=== PATIENT | female | born 1990 | race Caucasian/White ===

== ENCOUNTER 2022-01-10 08:01 | Outpatient (CLI) | payer OTHER, SELFPAY ==
--- NOTE | 2022-01-10 08:15 | CRLHL7_ITS ---
For Patients: As a result of the Century Cures Act, medical imaging exams and procedure reports are released immediately into your electronic medical record. You may view this report before your referring provider. If you have questions, please contact your health care provider. INDICATION: HX OF DVT AND PE COMPARISON: None available TECHNIQUE: A duplex venous ultrasound exam was performed of both lower extremities using delgado scale imaging, color Doppler and spectral Doppler analysis. Pre- and post compression images were obtained per site specific protocol. The size of the superficial veins were recorded, along with reflux times if applicable. FINDINGS: In the right lower extremity deep venous system, there is normal compressibility, color Doppler venous blood flow and augmentation within the common femoral vein, superficial femoral vein, popliteal vein, and posterior tibial veins. The greater and lesser saphenous veins of the right lower extremity are also patent and compressible with intact color Doppler venous blood flow. The greater saphenous vein measures 0.2 cm at the saphenofemoral junction where it is competent. The greater saphenous vein is competent throughout the thigh and calf. The lesser saphenous vein is competent throughout. The saphenopopliteal junction is identified. In the left lower extremity deep venous system, there is normal compressibility, color Doppler venous blood flow and augmentation within the common femoral vein, superficial femoral vein, popliteal vein, and posterior tibial veins. The greater and lesser saphenous veins of the left lower extremity are also patent and compressible with intact color Doppler venous blood flow. The greater saphenous vein measures 0.3 cm at the saphenofemoral junction where it is competent. The greater saphenous vein is competent throughout the thigh and calf. The lesser saphenous vein is competent throughout. The saphenopopliteal junction is identified. IMPRESSION: 1. No deep or superficial venous thrombosis. 2. No venous insufficiency in bilateral lower extremities. Dictated by Gurvinder Hussein MD @ 01/10/2022 12:07:51 PM (Electronically Signed)
== END 2022-01-10 08:02 | disposition home or self-care (01) ==
LOC: US 08:02
PROVIDERS: PCP Nurse Practitioner Family; Visit Provider Nurse Practitioner Family
DX: I26.99 Other pulmonary embolism without acute cor pulmonale (principal); Z86.718 Personal history of other venous thrombosis and embolism
CPT/HCPCS: 93970

== ENCOUNTER 2022-04-10 15:18 | Outpatient (RCR) | payer OTHER, SELFPAY ==
[2022-02-27 15:19] LABS: D Dimer Quantitative* 0.39 ug/ml (0.00-0.50)
[2022-03-10 08:28] LABS: Cardiolipin Antibody IgA <10 APL (<=11); Cardiolipin Antibody IgG <10 GPL (<=14); Cardiolipin Antibody IgM <10 MPL (<=12)
[2022-03-10 19:06] LABS: B2Glycoprotein 1, IgG Antibody <10 SGU (<=20); B2Glycoprotein 1, IgM Antibody <10 SMU (<=20)
[2022-03-13 18:59] LABS: PT PCR Specimen Whole Blood; Prothrombin(F2)G20210A Variant Negative
[2022-03-14 18:07] LABS: Protein C Functional 121 % (83-168); Protein S Functional 87 % (57-131)
[2022-03-14 19:59] LABS: Antithrombin, Enzymatic 124 % (76-128)
[2022-03-15 15:05] LABS: FACV Specimen Whole Blood; Factor V Leiden (F5) Mutation Heterozygous
[2022-03-17 17:32] LABS: Prothrombin Time 12.4 sec (12.0-15.5); dRVVT Screen 33 sec (33-44)
[2022-03-17 20:14] LABS: Antithrombin, Enzymatic 120 % (76-128)
== END 2022-09-03 23:59 | disposition home or self-care (01) ==
LOC: CCIC 15:18
PROVIDERS: PCP Nurse Practitioner Family; Referring Provider Nurse Practitioner Family; Visit Provider Internal Medicine Hematology & Oncology
DX: I82.409 Acute embolism and thrombosis of unspecified deep veins of unspecified lower extremity (principal); Z86.718 Personal history of other venous thrombosis and embolism
CPT/HCPCS: 36415; 81240; 81241; 85300; 85303; 85306; 85379; 85610; 85613; 85730; 86146; 86147; 99202; 99204; 99205; 99212; 99213; 99214

== ENCOUNTER 2022-10-08 13:02 | Outpatient (CLI) | payer OTHER, SELFPAY ==
--- NOTE | 2022-10-08 13:00 | CRLHL7_ITS ---
For Patients: As a result of the Cures Act, medical imaging exams and procedure reports are released immediately into your electronic medical record. You may view this report before your referring provider. If you have questions, please contact your health care provider. INDICATION: First trimester scan, establish dates. COMPARISON: None. TECHNIQUE: Real-time delgado-scale imaging of the pelvis was performed. FINDINGS: Sonographic imaging demonstrates a single living intrauterine gestation. The embryo demonstrates a regular cardiac rate measuring 178 beats per minute. The embryo`s crown-rump length measurement of 2.2 cm corresponds to a gestational age of 8 weeks 6 days with a sonographic due date of 05/14/2023. There is a normal-appearing yolk sac. There are no gross abnormalities noted within the embryo at this early state of development. The gestational sac has a normal appearance. There is a 0.7 x 1.7 x 1.2 cm lower uterine segment perigestational hemorrhage. The amount of fluid within the sac appears appropriate for gestational age. The cervix is closed. The myometrium appears normal. The ovaries are of normal size. Corpus luteal cyst right ovary. There are no suspicious fluid collections noted in the cul-de-sac. IMPRESSION: Single living intrauterine with sonographic gestational age 8 weeks 6 days and sonographic due date of 05/14/2023. Lower uterine segment subchorionic hemorrhage measuring 0.7 x 1.7 x 1.2 cm. Dictated by Gurvinder Hussein MD @ 10/08/2022 2:41:18 PM (Electronically Signed)
== END 2022-10-08 13:03 | disposition home or self-care (01) ==
LOC: US 13:02
PROVIDERS: PCP Nurse Practitioner Family; Visit Provider Physician Assistant
DX: Z34.91 Encounter for supervision of normal pregnancy, unspecified, first trimester (principal); O20.9 Hemorrhage in early pregnancy, unspecified; Z3A.08 8 weeks gestation of pregnancy
CPT/HCPCS: 76817

== ENCOUNTER 2022-10-08 13:27 | Outpatient (CLI) | payer OTHER, SELFPAY ==
[2022-10-08 19:57] LABS: Chlamydia DNA Amplified* NOT DETECTED (No Detected); GC DNA Amplified* NOT DETECTED (No Detected)
== END 2022-10-08 13:28 | disposition home or self-care (01) ==
PROVIDERS: PCP Nurse Practitioner Family; Visit Provider Physician Assistant
DX: Z34.91 Encounter for supervision of normal pregnancy, unspecified, first trimester (principal); Z3A.09 9 weeks gestation of pregnancy
CPT/HCPCS: 86592; 86703; 86762; 86787; 86803; 86850; 86900; 86901; 87086; 87340; 87491; 87591

== ENCOUNTER 2023-02-20 08:05 | Outpatient (CLI) | payer OTHER, SELFPAY ==
--- NOTE | 2023-02-20 08:15 | CRLHL7_ITS ---
For Patients: As a result of the Century Cures Act, medical imaging exams and procedure reports are released immediately into your electronic medical record. You may view this report before your referring provider. If you have questions, please contact your health care provider. INDICATION: Third trimester scan, evaluate growth. COMPARISON: 10/08/2022 TECHNIQUE: Real time delgado scale imaging of the fetus was performed. FINDINGS: Sonographic imaging demonstrates a single living intrauterine gestation. Fetus demonstrates a regular cardiac rate of 139 beats per minute. Fetus has a vertex position. The placenta lies anteriorly. Amniotic fluid volume appears normal and there is a single deepest vertical pocket: 6.1 cm. The estimated weight is 1335gm which lies at the 63rd %. BPD 72nd percentile. HC 58th percentile. AC 79th percentile. FL 22nd percentile. The HC/AC ratio measures 1.07 range (0.99-1.20). IMPRESSION: Sonographic gestational age 29 weeks 2 days and sonographic due date of 05/06/2023. Sonographic age is 6 days ahead of the clinical age. Estimated weight 63rd percentile. Abdominal circumference 79th percentile. Dictated by Gurvinder Hussein MD @ 02/20/2023 9:41:37 AM (Electronically Signed)
== END 2023-02-20 08:06 | disposition home or self-care (01) ==
LOC: US 08:06
PROVIDERS: PCP Nurse Practitioner Family; Visit Provider Obstetrics & Gynecology
DX: Z34.93 Encounter for supervision of normal pregnancy, unspecified, third trimester (principal); Z3A.29 29 weeks gestation of pregnancy
CPT/HCPCS: 76816

== ENCOUNTER 2023-02-20 08:20 | Outpatient (CLI) | payer OTHER, SELFPAY ==
--- NOTE | 2023-02-20 08:54 | PM.ANPROEV ---
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 Smoking Status: Never smoker Little interest or pleasure in doing things: not at all Feeling down, depressed, or hopeless: not at all Meds Home Medications and Allergies Home Medications Medication Instructions Recorded Confirmed Type cetirizine 10 mg capsule (Zyrtec) 10 mg PO QDAY PRN 03/07/22 02/20/23 History magnesium oxide 400 mg (241.3 mg 400 mg PO QDAY 03/07/22 02/20/23 History magnesium) tablet prenat.vits,keli,caf-putc-erbqe 1 tab PO QDAY 10/08/22 02/20/23 History Allergies Allergy/AdvReac Type Severity Reaction Status Date / Time No Known Allergies Allergy Verified 02/20/23 08:56 Anesthesia Risk Status Procedure Time Seen by Provider: 14:00 Date Seen: 02/19/23 Planned operative procedure(s): C/S versus TOLAC History Anesthesia history: spinal History of anesthesia reactions: No Family history of reaction to anesthesia: No Risk Assessed to be at risk for difficult intubation: No Assessment and Plan Assessment and plan (1) Factor V Leiden: Problem comment: Heterozygous Status: Chronic (2) intermediate designer (current) use of anticoagulants: Problem comment: Indication: DVT/PE. INR target range 2-3 for 6 months. Status: Chronic (3) : Status: Acute Plan Had appointment scheduled, but met the day prior out of mutual convenience. Prev C/S under spinal without issue. post op DVT/PE with diagnosis of Factor V Leiden. On lovenox during 40 mg BID. We had a discussion about options. sceduled C/S obviously is easiset to plan around need minimal of 12 hours before neuraxial anesthesia and 2021 Society of Regional Anesthesiology guidelines update puts greater than 40 mg/day of Lovenox in the high dose range and requires 24 hours prior to neuraxial anesthesia (48 hours if low CrCl). If using IV heparin would need 4-6 hours (per guidelines) and a normalized ptt prior to neuraxial intervention. She is aware of the recommendations and had previously discussed this with Naif Ibanez CRNA. One of her goals is to avoid a general anesthetic if need for C/S arises. 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 (if she chooses this pathway)
== END 2023-02-20 08:21 | disposition home or self-care (01) ==
LOC: NFLDREF 08:21
PROVIDERS: PCP Nurse Practitioner Family; Visit Provider Obstetrics & Gynecology
DX: Z34.91 Encounter for supervision of normal pregnancy, unspecified, first trimester (principal); D68.51 Activated protein C resistance; Z79.01 Long term (current) use of anticoagulants; Z3A.28 28 weeks gestation of pregnancy
CPT/HCPCS: 86592

== ENCOUNTER 2023-02-26 08:34 | Outpatient (CLI) | payer OTHER, SELFPAY | END 2023-02-26 08:35 | disposition home or self-care (01) | LOC: NFLDREF 02-27 11:11 | PROVIDERS: PCP Nurse Practitioner Family; Referring Provider Nurse Practitioner Family; Visit Provider Obstetrics & Gynecology | DX: R73.09 Other abnormal glucose (principal) | CPT/HCPCS: 82951; 82952 ==

== ENCOUNTER 2023-03-21 08:17 | Outpatient (CLI) | payer OTHER, SELFPAY ==
--- NOTE | 2023-03-21 08:15 | CRLHL7_ITS ---
For Patients: As a result of the Century Cures Act, medical imaging exams and procedure reports are released immediately into your electronic medical record. You may view this report before your referring provider. If you have questions, please contact your health care provider. INDICATION: Third trimester scan, evaluate growth. COMPARISON: 02/20/2023 TECHNIQUE: Real time delgado scale imaging of the fetus was performed. FINDINGS: Sonographic imaging demonstrates a single living intrauterine gestation. Fetus demonstrates a regular cardiac rate of 124 beats per minute. Fetus has a vertex position. The placenta lies anteriorly. Amniotic fluid volume appears normal and there is a single deepest vertical pocket: 6.3 cm. The estimated weight is 2023gm which lies at the 43rd %. On the prior OB ultrasound exam dated 02/20/2023 the estimated weight was at the 63rd%. BPD 49th percentile. HC 58th percentile. AC 61st percentile. FL 16th percentile. The HC/AC ratio measures 1.06 range (0.96-1.11). IMPRESSION: Sonographic gestational age 32 weeks 6 days and sonographic due date 05/10/2023. Good correlation with dates. Normal interval growth. Estimated weight 43rd percentile. Abdominal circumference 61st percentile. Dictated by Gurvinder Hussein MD @ 03/21/2023 9:29:46 AM (Electronically Signed)
== END 2023-03-21 08:18 | disposition home or self-care (01) ==
LOC: US 08:18
PROVIDERS: PCP Nurse Practitioner Family; Visit Provider Obstetrics & Gynecology
DX: Z34.93 Encounter for supervision of normal pregnancy, unspecified, third trimester (principal); Z3A.32 32 weeks gestation of pregnancy; Z87.59 Personal history of other complications of pregnancy, childbirth and the puerperium
CPT/HCPCS: 76816

== ENCOUNTER 2023-04-19 10:04 | Outpatient (CLI) | payer OTHER, SELFPAY ==
--- NOTE | 2023-04-19 10:15 | CRLHL7_ITS ---
For Patients: As a result of the Century Cures Act, medical imaging exams and procedure reports are released immediately into your electronic medical record. You may view this report before your referring provider. If you have questions, please contact your health care provider. INDICATION: Third trimester scan, evaluate growth. COMPARISON: 03/21/2023 TECHNIQUE: Real time delgado scale imaging of the fetus was performed. FINDINGS: Sonographic imaging demonstrates a single living intrauterine gestation. Fetus demonstrates a regular cardiac rate of 157 beats per minute. Fetus has a vertex position. The placenta lies anteriorly. Amniotic fluid volume appears normal and there is a single deepest vertical pocket: 6.8 cm. The estimated weight is 2904gm which lies at the 43rd %. On the prior OB ultrasound exam dated 03/21/2023 the estimated weight was at the 43rd%. BPD 20th percentile. HC 41st percentile. AC 66th percentile. FL 50th percentile. The HC/AC ratio measures 1.00 range (0.92-1.07). IMPRESSION: Sonographic gestational age 36 weeks 2 days and sonographic due date 05/15/2023. Good correlation with dates. Normal interval growth. Estimated weight 43rd percentile. Abdominal circumference 66th percentile. Dictated by Gurvinder Hussein MD @ 04/19/2023 1:21:15 PM (Electronically Signed)
== END 2023-04-19 10:05 | disposition home or self-care (01) ==
LOC: US 10:05
PROVIDERS: PCP Nurse Practitioner Family; Visit Provider Obstetrics & Gynecology
DX: Z34.93 Encounter for supervision of normal pregnancy, unspecified, third trimester (principal); Z3A.36 36 weeks gestation of pregnancy
CPT/HCPCS: 76816; 87081; 87653

== ENCOUNTER 2023-05-10 05:30 | Inpatient (IN) | payer OTHER, SELFPAY ==
[2023-05-10] VITALS (31 sets, daily range): BP systolic 96–126; BP diastolic 51–78; PULSE 60–82; RESP 15–18; TEMP 36.3–36.9; O2SAT 95–99; BMI 30.1
[2023-05-10 06:10] LABS: Basophils Absolute Auto 0.04 K/uL (0.00-0.30); Basophils Percent Auto 0.5 % (0.0-3.0); Eosinophils Absolute Auto 0.13 K/uL (0.00-0.50); Eosinophils Percent Auto 1.6 % (0.0-7.0); Hematocrit 37.3 % (33.0-51.0); Immature Granulocytes Abs Auto 0.04 K/uL (0.00-0.30); Immature Granulocytes Pct Auto 0.5 %; Lymphocytes Absolute Auto 2.05 K/uL (0.90-2.90); Mean Corpuscular HGB Conc 35 gm/dL (32-36); Mean Corpuscular Hemoglobin 33 pg (26-34); Mean Corpuscular Volume 95 fL (80-100); Monocytes Percent Auto 7.4 % (0.0-11.0); Neutrophils Absolute Auto 5.34 K/uL (1.7-7.0); Platelet Count* 188 K/uL (140-440); RDW Coefficient of Variation % 13.1 % (11.5-15.5); Red Blood Count 3.93 m/uL (4.00-5.20); White Blood Count* 8.21 K/uL (4.50-11.00)
[2023-05-10 06:27] LABS: Slide Review Reflex No
[2023-05-10] MEDS: LACTATED RINGERS 1000 ML 1,000 ML 225 ML IV ×2 (06:28→07:49)
[2023-05-10 06:47] LABS: INR 0.87 (0.91-1.10); Prothrombin Time 12.4 Seconds
[2023-05-10 06:48] LABS: Partial Thromboplastin Time* 29 Seconds (23-33)
[2023-05-10 06:50] LABS: Fibrinogen* 554 mg/dL (200-450)
[2023-05-10] MEDS: CEFAZOLIN 2 GM INJ IVP (07:35)
--- NOTE | 2023-05-10 08:02 | W.ANESCHARGE ---
Anesthesia Charges Start Date/Time Anesthesia Start Date: 05/10/23 Anesthesia Start Time: 07:24 Stop Date/Time Anesthesia Stop Date: 05/10/23 Anesthesia Stop Time: 08:46
--- NOTE | 2023-05-10 08:41 | P.NB_ITS ---
Nerve Block Nerve Block Time Seen by Provider: 08:35 Date Seen: 05/10/23 Type of block requested by surgeon for post-operative analgesia: TAP Side: bilateral Time out performed: Yes Verification of patient name: Yes Verification of date of : Yes Name of person performing procedure: Akila Cl Continuous monitoring Was continuous monitoring of O2 sat, B/P, monitoring specialist, recorded every 15 minutes?: Yes Procedure Checklist: sterile prep, needles and gloves Ultrasound guided. Images saved: Yes Medications given in 5ml increments after negative aspiration: Marcaine %: 0.25 mL: 30 Needle gauge: 21 and Exparel mL: 10 Needle gauge: 21 Patient tolerated procedure well: Yes Block Charges Block Charge (with Pro Fee): TAP Bilateral Use of Ultrasound Machine for Block: Yes- US Guidance/pain block
--- NOTE | 2023-05-10 09:00 | PM.OBHPCS1 ---
OB - H&P: HPI History of Present Illness Chief complaint: maternity Narrative: Paulette Ivey is a 32 year old female at 39w5d here for scheduled repeat delivery. Patient's full history dictated by myself on 04/24/2023. Please see note for full details. She has been doing q.day Lovenox 40 mg status b.i.d. for the last week. Active movement. Denies LOF, vaginal bleeding or abnormal vaginal discharge. Some Lex Rg contractions. Specific Issues/Plans 1. Factor V Leiden heterozygous. History of DVT with bilateral PE at 3 weeks . Was treated with 6 months of anticoagulation. Started prophylactic Lovenox dose with positive UPT. Lovenox 40mg SC MFM consult 10/23/22: recommend increasing to intermediate dosing: Lovenox 40mg BID through 6 weeks -wait 12 hours after dose LMWH before placing regional anesthesia (see additional timing recommendations in consult note) - US: unable to obtain NT due to position, nasal bone visualized - Anesthesia consult placed: Stop Lovenox 24 prior to . If heparin, 6 hours after last dose with normalized PTT. (cephalic, EF to be 43%, AC 66%, all growth parameters within normal ranges. to confirm with Dr. Ibanez) -Consider timed delivery at 39 weeks to aid in the discontinuation of Lovenox 2. History of IUGR - Level 2 US with [facility]: 12/12/22 -normal anatomy. Anterior placenta, no previa. EFW 44% -Growth US q 4-6 weeks starting at 28 weeks: 28 weeks: ?EFW 1335 g (63%), BPD 72%, HC 58%, AC 79%, FL 22%, SDP 6.1 cm, vertex 3. Status post . IUGR and bradycardia Considering Growth US @ 36 weeks: EFW 43%, AC 66%, all growth parameters within normal ranges Repeat section to be scheduled with Dr. Farias on 05/10/2023 (Dr. Vásquez on jury duty): Scheduling form filled out. 4. Carrier for SMA, is negative 5. 3 hr GTT entirely normal. 6. GBS positive. 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 What is your current living situation?: I presently have a place to live Problems where you live: no known problems In the past 12 months, utilities in danger of being shut off: no In past 12 months, lack of transportation kept you from medical appts, meetings, work, or getting things needed for daily living: no In the past 12 mos, have been you worried that your food would run out before you had money to buy more?: never true In the past 12 mos, the food you bought just didn't last and you didn't have money to buy more?: never true Smoking Status: Never smoker How often does anyone, including family, friends and others, physically hurt you: never How often does anyone, including family, friends and others, insult or talk down to you: never How often does anyone, including family, friends and others, threaten you with harm: never How often does anyone, including family, friends and others, scream or curse at you: never Little interest or pleasure in doing things: not at all Feeling down, depressed, or hopeless: not at all Meds Home Medications and Allergies Home Medications Medication Instructions Recorded Confirmed Type cetirizine 10 mg capsule (Zyrtec) 10 mg PO QDAY PRN 03/07/22 05/10/23 History magnesium oxide 400 mg (241.3 mg 400 mg PO QDAY 03/07/22 05/10/23 History magnesium) tablet prenat.vits,keli,ufa-rujd-zoost 1 tab PO QDAY 10/08/22 05/10/23 History ferrous sulfate 142 mg (45 mg 142 mg PO QDAY 03/06/23 05/10/23 History iron) tablet,extended release (Slow Fe) Allergies Allergy/AdvReac Type Severity Reaction Status Date / Time No Known Allergies Allergy Verified 05/07/23 08:41 OB - H&P: Exam Physical Exam: Vital signs: Temp Pulse BP 97.5 F L 82 126/69 05/10/23 06:15 05/10/23 06:03 05/10/23 06:03 Narrative: Physical exam: General: No acute distress Psych: Alert and oriented x3, full affect HEENT: Normocephalic, atraumatic Lungs: Unlabored breathing Neuro: No focal deficit. Mentating appropriately Abdomen: Gravid. Cephalic fetus. No tenderness, guarding, or distention. Pelvic exam: Deferred OB - Results Labs Labs: Short CBC 05/10/23 Range/Units 06:00 WBC 8.21 (4.50-11.00) K/uL Hgb 13.0 (12.0-16.0) gm/dL Hct 37.3 (33.0-51.0) % Plt Count 188 (140-440) K/uL Assessment and Plan Assessment and plan (1) with history of section, antepartum: Status: Acute (2) Abnormal GTT (glucose tolerance test): Status: Acute (3) Mild intermittent asthma: Status: Chronic (4) Seasonal allergies: Problem comment: Nasonex and Zyrtec. Status: Acute (5) Factor V Leiden: Problem comment: Heterozygous Status: Chronic (6) History of DVT (deep vein thrombosis): Problem comment: L lower extremity 07/30/21 after on 06/17/21. 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 INR target range 2-3 for 6 months. Status: Chronic (8) Spinal muscular atrophy: Problem comment: Gene carrier. Status: Chronic (9) Pulmonary embolism: Problem comment: Bilateral 07/30/21 after on 06/17/21. Status: Acute Plan - Will proceed with scheduled CD - CS Consent The patient was consented for section and blood. She understands that the three main categories of risk include bleeding, infection, and damage to surrounding structures. Regarding infection, she understands that we will be delivering appropriate antibiotics, however that the risk of infection following section still is approximately 5%. She understands that though the risk is very low that there is always a risk of damage to the bladder, uterus, ovaries, fallopian tubes, bowels, ureters, or even the fetus. She understands that most injuries can be addressed at the time of surgery, however, such an injury may require additional surgeries to fix. Lastly, she understands that a section carries a risk of bleeding, and that while this bleeding can be addressed with multiple medical and surgical modalities, that there is the possibility of needing a blood transfusion. She reports she would accept a blood transfusion understanding the risks of a 1/200,000 risk of Hepatitis and 1/2,000,000 risk of HIV as well as the risk of having an allergic reaction to the blood products. She further understands that this reaction is typically mild, however can be severe including respiratory distress and necessitating ICU-level care. Lastly, she understands that a section does increase risks for future pregnancies and deliveries including, but not limited to, the risk of uterine rupture or placenta accreta. - Hgb/plt: 13.0/188 - INR: 0.87 - APTT: 29 - Fibrinogen: 554 - Plan for Lovenox 40 mg BID x6 weeks
--- NOTE | 2023-05-10 09:01 | P.PCN_ITS ---
Procedure Note Time Seen by Provider: 07:00 Date Seen: 05/10/23 Date of procedure: 05/10/23 Will [facility] bill your pro fee for this procedure?: Yes Pre-op diagnosis: Elective repeat section Post-op diagnosis: same Procedure: Repeat low transverse section Procedure Description: DELIVERY BY SECTION Date of Service: 05/10/2023 Delivery time: 0751 Summary: Admitted for scheduled repeat delivery at 39 weeks 5 days, repeat lower uterine transverse section, Pfannenstiel, Closed with suture, QBL 386 cc, no complications, Findings: Normal uterus, bilateral ovaries and tubes. Minimal filmy adhesions. 9/9, weight 3345 g. Primary Indication: Previous delivery x1 Declined TOLAC Procedures: Repeat lower uterine transverse section Specimens Removed: Placenta Surgeon: Maylin Farias MD Construction Specialist Surgeon: Nicolasa Vásquez MD Anesthesia: Spinal @ 07, TAP Report: Prophylactic antibiotic, 2 g of Ancef was given prior to incision. After arrival to the operating room patient was placed in the supine position with left lateral tilt after administration of spinal anesthesia. Laparotomy A pfannenstiel incision was made through the anterior abdominal wall with #10 scalpel approximately 2 cm above the pubic symphysis. The incision was extended sharply with the #10 scalpel through the subcutaneous tissue to the level of fascia. The fascia was entered sharply with a #10 scalpel (Pfannenstiel) in the midline and extended in semi-elliptical fashion with Hylton scissor. The underlying muscles were dissected off the overlying fascia by grasping the superior aspect of fascia with two reshma clamps and blunt dissection was used along the midline. The fascia was further from rectus muscle with Hylton scissor and/or cautery. In similar fashion, the lower aspect of fascia was also grasped with two Reshma clamps and both blunt and sharp dissection was used to separate fascia from rectus muscle. The rectus muscles were in the midline bluntly with digits. The peritoneum was then entered sharply with Ashley's and Metzenbaum. The peritoneal incision was then extended superiorly and inferiorly under direct visualization with care being taken to avoid bladder and bowel. Minimal filmy adhesions were noted. The peritoneal incision was enlarged bluntly by lateral traction from the surgeon's and international first officer's hand. Dheeraj retractor was inserted into the abdomen. Delivery A bladder flap was developed by grasping with Haitian forcep and enter with Metzenbaun scissor. Then sharp and blunt dissection with Metzenbaum scissor and fingers were performed. A low transverse hysterotomy was made then with #10 scalpel and extended laterally and cephalad with fingers in a low transverse fashion with Manu Dang technique with care being taken to avoid injury to the fetus. The amniotic cavity (membrane) was then entered with spontaneous rupture of membrane, and the amniotic fluid was noted to be clear, fetus was delivered cephalic. With delivery of the baby, no extension was noted. Placenta was delivered spontaneously with steady traction on cord and manual separation of placenta from uterine wall. Closure Uterine cavity was cleaned after placental delivery with lap sponge x 3. The hysterotomy was closed in two layer with stitches using 0 vicryl with continuous locking stitches and a 2nd imbricating layer with 0 Monocryl was placed. Hemostasis was achieved as needed with electrocautery. The ovaries/tubes/uterine surface were evaluated. They were found to be normal. Dheeraj retractor removed and hemostasis was confirmed again. Fascia was closed with running stitches using 0 PDS. Subcutaneous layer was irrigated. Hemostasis was checked for and found to be adequate. The subcutaneous layer was closed with running 2-0 chromic sutures. The skin was closed with monocryl subcuticular sutures . The incision was cleaned, Exofin applied, and covered with Mepilex dressing. The procedure was considered terminated at this time. Intraoperative Complications: None QBL: 386 cc Uterotonics: 30u of pitocin Disposition: The patient tolerated the procedure well. She was recovered in Obstetric PACU for close monitoring in stable condition, with a contracted uterus and normal transvaginal bleeding. The was sent to mother?s bedside. The placenta was sent to pathology. Debrief with OR team performed at the conclusion of the procedure. Anesthesia: spinal Surgeon: Maylin Farias MD Construction Specialist: Guerita Vásquez IV fluids (mL): 700 Urine output (mL): 300 Pathology: specimen obtained, sent to pathology (Placenta for maternal coagulation disorder/chronic anticoagulation use) Condition: stable Disposition: floor
[2023-05-10] MEDS: LACTATED RINGERS 1000 ML 1,000 ML 125 ML IV (12:39)
[2023-05-10] MEDS: KETOROLAC 30 MG/ML inj IVP ×2 (14:23→19:23)
[2023-05-10] MEDS: ENOXAPARIN 40 MG/0.4 ML INJ SUBCUT (19:20)
[2023-05-10] MEDS: SODIUM CHLORIDE 0.9 % (FLUSH) 10 ML SYRINGE IVF (19:24)
[2023-05-11] VITALS (12 sets, daily range): BP systolic 96–119; BP diastolic 58–73; PULSE 68–82; RESP 14–17; TEMP 36.5–36.7; O2SAT 96–98
[2023-05-11] MEDS: KETOROLAC 30 MG/ML inj IVP ×3 (02:04→14:03)
[2023-05-11] MEDS: ACETAMINOPHEN 500 MG TABLET 1000 MG PO ×4 (05:07→23:32)
[2023-05-11 06:54] LABS: Hemoglobin* 11.9 gm/dL (12.0-16.0)
[2023-05-11] MEDS: ENOXAPARIN 40 MG/0.4 ML INJ SUBCUT ×2 (07:27→19:27)
--- NOTE | 2023-05-11 08:46 | P.OBPN_ITS ---
OB - PN:Subj Subjective Time Seen by Provider: 08:46 Date Seen: 05/11/23 Patient comments OB post-: no complaints, pain well controlled, tolerating diet and flatus present infant status: Reading feeding status: exclusively OB - PN: Obj Exam Physical Exam: Vital signs: Temp Pulse Resp BP Pulse Ox O2 Del Method 97.7 F 82 16 101/58 L 97 Room Air 05/11/23 05:11 05/11/23 05:11 05/11/23 06:00 05/11/23 05:11 05/11/23 05:11 05/11/23 05:11 Narrative: GENERAL APPEARANCE: Pleasant, , well-groomed woman in no acute distress. VITAL SIGNS: as noted in nursing notes HEAD: Normocephalic, atraumatic. THYROID: no masses, nodularity, tenderness or enlargement. LUNGS: Clear to auscultation bilaterally without wheezes, rales or rhonchi. HEART: Regular rate and rhythm with normal S1 and S2. No gallop, rub or murmur. ABDOMEN: Fundus firm at 1 cm below the umbilicus in the midline. INCISION: Clean, dry and intact with sutures and skin adhesive gel. EXTREMITIES: No cyanosis, clubbing, or edema. No varicosities. SCD's in place. NEUROLOGIC: Normal gait and balance. Normal deep tendon reflexes at bilateral patella 2+/2, equal without clonus. PSYCHIATRIC: alert and oriented x3. Normal speech pattern, eye contact and affect. SKIN: Warm, dry, and well perfused. Good turgor. No lesions, nodules or rashes. Urinary Catheter Management: Urethral: Cath placed during this visit: yes Urethral indwelling: No Reason for continuing: surgical procedure Insertion date: 05/10/23 Insertion time: 07:30 OB - PN: Obj Data Labs Labs: Laboratory Results - last 24 hr 05/11/23 06:46 Hgb 11.9 L OB - PN: A/P Delivery Assessment and Plan (1) with history of section, antepartum: Status: Acute Assessment and Plan: 1. Planning discharge home tomorrow. 2. Lovenox restarted 12 hours post delivery. (2) Abnormal GTT (glucose tolerance test): Status: Acute (3) Mild intermittent asthma: Status: Chronic (4) Seasonal allergies: Problem details: Nasonex and Zyrtec. Status: Acute (5) Factor V Leiden: Problem details: Heterozygous Status: Chronic (6) History of DVT (deep vein thrombosis): Problem details: L lower extremity 07/30/21 after on 06/17/21. Status: Acute (7) terminal supervisor (current) use of anticoagulants: Problem details: Indication: DVT/PE. INR target range 2-3 for 6 months. Status: Chronic (8) Spinal muscular atrophy: Problem details: Gene carrier. Status: Chronic (9) Pulmonary embolism: Problem details: Bilateral 07/30/21 after on 06/17/21. Status: Acute
[2023-05-11] MEDS: DOCUSATE SODIUM 100 MG CAPSULE PO (08:50)
[2023-05-11] MEDS: IBUPROFEN 600 MG TABLET PO (19:27)
[2023-05-12] MEDS: IBUPROFEN 600 MG TABLET PO ×2 (02:08→08:22)
[2023-05-12] MEDS: ACETAMINOPHEN 500 MG TABLET 1000 MG PO (06:00)
[2023-05-12] MEDS: ENOXAPARIN 40 MG/0.4 ML INJ SUBCUT (08:15)
[2023-05-12] MEDS: DOCUSATE SODIUM 100 MG CAPSULE PO (08:16)
--- NOTE | 2023-05-12 08:19 | P.DS_ITS ---
DS: Providers Provider Time Seen by Provider: 08:19 Date Seen: 05/12/23 Date of admission: 05/10/23 05:30 Primary care physician: Claribel Alvarenga APRN, [facility] Admitting Clinician: Maylin Farias MD Attending Physician on discharge: Maria Isabel Gonzalez MD Date of Discharge: 05/12/23 Exam Narrative: Exam Narrative: GENERAL APPEARANCE: Pleasant, , well-groomed woman in no acute distress. VITAL SIGNS: as noted in nursing notes HEAD: Normocephalic, atraumatic. THYROID: no masses, nodularity, tenderness or enlargement. LUNGS: Clear to auscultation bilaterally without wheezes, rales or rhonchi. HEART: Regular rate and rhythm with normal S1 and S2. No gallop, rub or murmur. ABDOMEN: Fundus firm 2 cm below the umbilicus in the midline. LOCHIA: Scant rubra EXTREMITIES: No cyanosis, clubbing, or edema. No varicosities. NEUROLOGIC: Normal gait and balance. Normal deep tendon reflexes at bilateral patella 2+/2, equal without clonus. PSYCHIATRIC: alert and oriented x3. Normal speech pattern, eye contact and affect. SKIN: Warm, dry, and well perfused. Good turgor. No lesions, nodules or rashes. Const: Vital Signs, click to edit/add: Vital Signs - 24 hr 05/11/23 16:30 05/11/23 23:36 Temperature 98.1 F Pulse Rate [Pulse Oximeter] 74 71 Respiratory Rate 16 16 Blood Pressure [Le ft Arm] 119/73 103/69 Pulse Oximetry 98 98 Oxygen Delivery Me thod Room Air Room Air OB - DS: Summary Hospital Course Hospital Course: Paulette is a 32 year old G 2 P 2 at 30 weeks gestation that was admitted to the Center on 05/10/23 for scheduled repeat low-transverse section. She had an uncomplicated delivery. She delivered a viable male infant. She is breast feeding. the patient has done well. She would like to be discharged home today. Preoperative hemoglobin: 13.0. Postoperative hemoglobin 11.9. Peripartum Data delivery method: Repeat Section Procedures: Procedures Operation Date: 05/10/23 07:15 Actual Procedure Side Surgeon p Repeat Section Maylin Farias MD complications: none Gender: Male Time Spent with Patient Time attestation: Total time spent providing and/or coordinating discharge services: Discharge Plan Discharge Disposition: Home, Self-Care Date of Admission: 05/10/23 05:30 Attending Provider on Discharge: Maria Isabel Gonzalez Primary Care Provider: Claribel Alvarenga Condition: Stable Anticipated Discharge Date/Time: 05/12/23 15:50 Discharge Medications: New docusate sodium 100 mg Capsule 100 mg PO BID PRNQty: 100 0RF ibuprofen 600 mg Tablet 600 mg PO Q6H PRN (Reason: Pain) Qty: 30 0RF oxycodone 5 mg Tablet 5 mg PO 3XD PRN (Reason: Pain) Qty: 21 0RF Continued magnesium oxide 400 mg (241.3 mg magnesium) tablet 400 mg PO QDAY Zyrtec 10 mg capsule 10 mg PO QDAY PRN prenat.vits,keli,qvb-ppbg-cmcfu Tablet 1 tab PO QDAY Slow Fe 142 mg (45 mg iron) tablet extended release 142 mg PO QDAY enoxaparin [Lovenox] 40 mg/0.4 mL syringe 40 mg subcut Q12H 90 Days Qty: 72 2RF Discharge Orders: Discharge Order (Routine); Ordered 05/12/23 Ordered By: Maria Isabel Gonzalez Patient Education: (DC) Additional Instructions: ACTIVITY RESTRICTIONS: * Nothing vaginally for 6 weeks: no tampons/intercourse * No driving while taking narcotic pain medication during the day. 1-2 weeks. Okay to be the passenger anytime. * Lifting restriction: Maximum of 20 pounds for 6 weeks. * High impact or core exercises: 6 weeks. * Submerge the incision in water (bath/pool/chisholm): 2 weeks. * Off of work/school for a minimum of 8 weeks NO RESTRICTIONS for: * Walking * Going up/down stairs * Showering Symptoms to report to doctor: -Bleeding that saturates more than one pad per hour ?-Passing clots larger than the size of a golf ball ?-Pain not relieved by prescribed medication ?-Fever above 100.4 degrees Fahrenheit ?-A foul vaginal odor ?-Difficulty in emotions, mood and functions ?-Thoughts of hurting yourself and/or ?-Painful, reddened area in your breast ?-Any drainage, redness or tenderness in your IV/epidural site ?-Severe headache that doesn't improve after taking medications ?-Changes in vision, including temporary loss of vision, blurred vision, and/or light sensitivity ?-Upper abdominal pain (usually under ribs on the right side) ?-Decrease in urination or painful, frequent urinating ?-Chest pain ?-Shortness of breath ?-Tenderness or pain with redness and/swelling in the calf(s) of your leg Follow-up Appointments: 1. [facility] in 1 week to remove your dressing: incision check. 2. A 6 week visit for an annual physical exam. consultation services are available to all mothers and babies for the first year after delivery.? To make an appointment, please call [phone]. Activity Detail: see activity restrictions above. Discharge Diet: Regular Follow Up Appointments: Claribel Alvarenga, CROSS COUNTRY/TRACK AND FIELD COACH, [facility] [Primary Care Provider] - [facility] [Provider Group] Forms: MyHealth Info Instructions
[2023-05-12 08:21] VITALS: BP 112/67; PULSE 79; RESP 16; TEMP 36.3; O2SAT 95
== END 2023-05-12 10:30 | disposition home or self-care (01) | DRG 787 ==
PROVIDERS: Admitting Provider Obstetrics & Gynecology; PCP Nurse Practitioner Family; Visit Provider Obstetrics & Gynecology
PROC: 10D00Z1 Extraction of Products of Conception, Low, Open Approach (ICD-10-PCS; CPT 59514; principal; 2023-05-10 07:15)
DX: O34.211 Maternal care for low transverse scar from previous cesarean delivery (principal); D68.51 Activated protein C resistance; O99.12 Other diseases of the blood and blood-forming organs and certain disorders involving the immune mechanism complicating childbirth; Z86.718 Personal history of other venous thrombosis and embolism; Z79.01 Long term (current) use of anticoagulants; O99.824 Streptococcus B carrier state complicating childbirth; O99.814 Abnormal glucose complicating childbirth; J45.20 Mild intermittent asthma, uncomplicated; Z86.711 Personal history of pulmonary embolism; Z14.8 Genetic carrier of other disease; G89.18 Other acute postprocedural pain; Z37.0 Single live birth; Z3A.39 39 weeks gestation of pregnancy
CPT/HCPCS: 01961; 36415; 64488; 76942; 85018; 85025; 85384; 85610; 85730; 86850; 86900; 86901; 88307; A9270; C9290; J0665; J0690; J1650; J1885; J2274; J2371; J2405; J2590; J7120

== ENCOUNTER 2023-06-12 14:57 | Outpatient (CLI) | payer OTHER, SELFPAY ==
--- NOTE | 2023-06-12 15:00 | CRLHL7_ITS ---
For Patients: As a result of the Century Cures Act, medical imaging exams and procedure reports are released immediately into your electronic medical record. You may view this report before your referring provider. If you have questions, please contact your health care provider. INDICATION: Left calf pain, history of DVT and pulmonary embolus COMPARISON: None. TECHNIQUE: Sanchez-scale, color, and duplex Doppler imaging of the examined veins. Compression and augmentation attempted where anatomically and clinically feasible. FINDINGS: Laterality: Bilateral Examined veins: Common femoral, femoral, popliteal, peroneal, posterior tibial Greater saphenous The examined veins are patent with normal color Doppler flow and a normal venous waveform on duplex Doppler. Where possible, there is normal compression and normal augmentation of flow. IMPRESSION: No deep vein thrombosis in either leg. Dictated by Sylvia Schwartz MD @ 06/12/2023 3:44:30 PM (Electronically Signed)
== END 2023-06-12 14:58 | disposition home or self-care (01) ==
PROVIDERS: PCP Nurse Practitioner Family; Visit Provider Obstetrics & Gynecology
DX: D68.51 Activated protein C resistance (principal); I26.99 Other pulmonary embolism without acute cor pulmonale; M79.662 Pain in left lower leg; Z79.01 Long term (current) use of anticoagulants; Z86.718 Personal history of other venous thrombosis and embolism
CPT/HCPCS: 93970

== ENCOUNTER 2024-05-26 09:11 | Outpatient (CLI) | payer OTHER, SELFPAY ==
--- NOTE | 2024-05-26 09:15 | CRLHL7_ITS ---
For Patients: As a result of the Century Cures Act, medical imaging exams and procedure reports are released immediately into your electronic medical record. You may view this report before your referring provider. If you have questions, please contact your health care provider. INDICATION: First trimester scan, establish dates. COMPARISON: None. TECHNIQUE: Real-time delgado-scale imaging of the pelvis was performed. FINDINGS: Sonographic imaging demonstrates a single living intrauterine gestation. The embryo demonstrates a regular cardiac rate measuring 145 beats per minute. The embryo`s crown-rump length measurement of 1.2 cm corresponds to a gestational age of 7 weeks 3 days with a sonographic due date of 01/09/2025. There is a normal-appearing yolk sac. There are no gross abnormalities noted within the embryo at this early state of development. The gestational sac has a normal appearance. There is no evidence of a perigestational hemorrhage. The amount of fluid within the sac appears appropriate for gestational age. The cervix is closed. Left fundal subserosal fibroid measures 12 x 10 x 11 millimeters. The ovaries are of normal size. Corpus luteal cyst right ovary. There are no suspicious fluid collections noted in the cul-de-sac. IMPRESSION: Gestational age calculated at 7 weeks 3 days with a sonographic due date of 01/09/2025. Left subserosal fibroid measures 1.2 cm. Dictated by Gurvinder Hussein MD @ 05/26/2024 11:41:58 AM (Electronically Signed)
== END 2024-05-26 09:12 | disposition home or self-care (01) ==
LOC: US 09:12
PROVIDERS: PCP Nurse Practitioner Family; Visit Provider Physician Assistant
DX: Z34.91 Encounter for supervision of normal pregnancy, unspecified, first trimester (principal); O34.11 Maternal care for benign tumor of corpus uteri, first trimester; D25.2 Subserosal leiomyoma of uterus; Z3A.01 Less than 8 weeks gestation of pregnancy
CPT/HCPCS: 76817

== ENCOUNTER 2024-05-26 09:54 | Outpatient (CLI) | payer OTHER, SELFPAY | END 2024-05-26 09:55 | disposition home or self-care (01) | PROVIDERS: PCP Nurse Practitioner Family; Visit Provider Advanced Practice Midwife | DX: Z34.81 Encounter for supervision of other normal pregnancy, first trimester (principal); Z67.40 Type O blood, Rh positive | CPT/HCPCS: 83020; 83021; 85660; 86592; 86703; 86704; 86706; 86762; 86787; 86803; 86850; 86900; 86901; 87086; 87340 ==

== ENCOUNTER 2024-08-12 13:26 | Outpatient (CLI) | payer OTHER, SELFPAY | END 2024-08-12 13:27 | disposition home or self-care (01) | LOC: US 13:27 | PROVIDERS: PCP Nurse Practitioner Family; Visit Provider Obstetrics & Gynecology | DX: O09.522 Supervision of elderly multigravida, second trimester (principal); Z3A.18 18 weeks gestation of pregnancy | CPT/HCPCS: 76811 ==

== ENCOUNTER 2024-10-15 09:32 | Outpatient (CLI) | payer OTHER, SELFPAY | END 2024-10-15 09:33 | disposition home or self-care (01) | LOC: NFLDREF 10-27 06:46 | PROVIDERS: PCP Nurse Practitioner Family; Referring Provider Nurse Practitioner Family; Visit Provider Obstetrics & Gynecology | DX: Z34.83 Encounter for supervision of other normal pregnancy, third trimester (principal) | CPT/HCPCS: 86592; 86593; 86780 ==

== ENCOUNTER 2024-11-17 12:07 | Outpatient (CLI) | payer OTHER, SELFPAY ==
--- NOTE | 2024-11-17 12:15 | CRLHL7_ITS ---
For Patients: As a result of the Century Cures Act, medical imaging exams and procedure reports are released immediately into your electronic medical record. You may view this report before your referring provider. If you have questions, please contact your health care provider. OBSTETRICAL ULTRASOUND ??? FOLLOW-UP, 11/17/2024 INDICATION: AMA, history of IUGR. Follow-up growth. CLINICAL HISTORY: SABINE by US: 01/09/2025 Gestational Age: 32 weeks 3 days COMPARISON: 08/12/2024, 05/26/2024. TECHNIQUE: Real-time delgado-scale transabdominal imaging of the fetus was performed. FINDINGS: Fetus: Single Cervix: Not visualized positioning: Vertex Amniotic Fluid: 4.5 cm SDP Placenta technique: Transabdominal Placenta position: Posterior heart rate: 127 bpm BIOMETRY: BPD: 8.1 cm, 32 weeks 4 days, 46.6% HC: 30.4 cm, 33 weeks 6 days, 49.2% AC: 29.0 cm, 33 weeks 0 days, 65.5% FL: 6.4 cm, 33 weeks 0 days, 55.1% FL/AC Ratio: 22.11% HC/AC ratio: 1.05 EFW: 2105 grams; 4 lbs. 10 oz. age by this ultrasound: 33 weeks 1 day SABINE by this ultrasound: 01/04/2025 Percentile by SABINE: 59.6% IMPRESSION: 1. Sonographic gestational age 33 weeks 1 day and sonographic due date 01/04/2025. Sonographic age is 5 days ahead of the clinical age. 2. Estimated weight is 60th percentile. Abdominal circumference is 66th percentile. GURVINDER SAMUEL M.D. Diagnostic Radiologist [email or web address] Transcribed: 9:[address]/Dictated by: Gurvinder Samuel MD @ 11/18/2024 6:29:00 AM (Electronically Signed)
== END 2024-11-17 12:08 | disposition home or self-care (01) ==
LOC: US 12:08
PROVIDERS: PCP Nurse Practitioner Family; Visit Provider Obstetrics & Gynecology
DX: O09.523 Supervision of elderly multigravida, third trimester (principal); O36.63X0 Maternal care for excessive fetal growth, third trimester, not applicable or unspecified; Z87.59 Personal history of other complications of pregnancy, childbirth and the puerperium; Z3A.32 32 weeks gestation of pregnancy
CPT/HCPCS: 76816

== ENCOUNTER 2024-12-03 08:09 | Outpatient (CLI) | payer OTHER, SELFPAY | END 2024-12-03 08:10 | disposition home or self-care (01) | LOC: NFLDREF 08:09 | PROVIDERS: PCP Nurse Practitioner Family; Visit Provider Obstetrics & Gynecology | DX: Z34.83 Encounter for supervision of other normal pregnancy, third trimester (principal) | CPT/HCPCS: 86706 ==

== ENCOUNTER 2024-12-21 11:13 | Outpatient (CLI) | payer OTHER, SELFPAY ==
[2024-12-22 09:35] LABS: Strep B DNA Probe Negative (Negative)
[2024-12-22 10:12] LABS: Strep B Susceptibility Needed? No
== END 2024-12-21 11:14 | disposition home or self-care (01) ==
PROVIDERS: PCP Nurse Practitioner Family; Visit Provider Obstetrics & Gynecology
DX: Z34.93 Encounter for supervision of normal pregnancy, unspecified, third trimester (principal); Z3A.37 37 weeks gestation of pregnancy
CPT/HCPCS: 87081; 87653

== ENCOUNTER 2025-01-01 05:59 | Inpatient (IN) | payer OTHER, SELFPAY ==
[2025-01-01] VITALS (33 sets, daily range): BP systolic 101–123; BP diastolic 57–75; PULSE 43–97; RESP 16; TEMP 36.3–36.8; O2SAT 95–99; BMI 31.8
[2025-01-01 07:07] LABS: Hematocrit 34.5 % (33.0-51.0); Hemoglobin* 12.0 gm/dL (12.0-16.0); Immature Granulocytes Abs Auto 0.04 K/uL (0.00-0.30); Immature Granulocytes Pct Auto 0.5 %; Lymphocytes Absolute Auto 2.29 K/uL (0.90-2.90); Mean Corpuscular HGB Conc 35 gm/dL (32-36); Mean Corpuscular Hemoglobin 33 pg (26-34); Mean Corpuscular Volume 94 fL (80-100); RDW Coefficient of Variation % 12.4 % (11.5-15.5); Red Blood Count 3.69 m/uL (4.00-5.20); White Blood Count* 8.85 K/uL (4.50-11.00)
[2025-01-01 07:09] LABS: Slide Review Reflex No
[2025-01-01] MEDS: LACTATED RINGERS 1000 ML 1,000 ML 100 ML IV (08:06)
--- NOTE | 2025-01-01 08:31 | P.OBPRC_ITS ---
Procedure Date of procedure: 01/01/25 Pre-op diagnosis: 1. 38 6/7 weeks gestation 2. h/o 2 prior deliveries 3. On chronic anticoagulation for history of PE Post-op diagnosis: same Procedure Done: Global Will [facility] bill your pro fee for this procedure?: Yes Blood Loss Measurement Type: QBL (310 mL) Bakri Used: No IV fluids (mL): 1,300 Urine Output (mL): 300 Surgeon: Guerita Vásquez MD Architectural Sales Consultant: Ne MITCHELL Anesthesia Type: Spinal Findings: Moderate scar tissue from prior deliveries involving fascia, rectus muscles, and peritoneum, as well as lower uterine segment and bladder. Very thin lower uterine segment with a 2 mm x 10 mm window. Meconium-stained amniotic fluid. Live-born male infant, cephalic presentation with loose nuchal cord x1, weight 7 lb 0 oz, Apgars 8 and 9 at 1 and 5 minutes, respectively. Normal appearing tubes and ovaries bilaterally. Procedure Name: Repeat low transverse section with scar revision and lysis of adhesions. Procedure Description: After obtaining informed consent, the patient was taken to the operating room where spinal anesthesia was obtained and found to be adequate. She was prepared and draped in the normal sterile fashion in the dorsal supine position with a leftward tilt. A Pfannenstiel skin incision was made with a scalpel in elliptical fashion along the line of the patient's previous Pfannenstiel scar. The old scar was elevated with Allis clamps, and fully excised. The incision was carried down to the underlying layer of fascia with the Bovie. The fascia was incised in the midline and the incision extended laterally. The superior and inferior aspects of the fascial incision were grasped with Reshma clamps, elevated and the underlying rectus muscles dissected off sharply and with electrocautery. This dissection took an increased amount of time given the dense adhesions. The rectus muscles were then in the midline. The Dheeraj O retractor was then placed into the incision. The lower uterine segment was then incised in a transverse fashion with the scalpel. Upon entry into the uterus, membranes bulged. The uterine incision was extended laterally with blunt finger fractionation. Membranes were ruptured with a Ashley clamp. The 's head was delivered atraumatically, followed by the remainder of the infant's body. The nose and mouth were suctioned with the bulb suction. The cord was doubly clamped and cut, and the was handed off the field for evaluation. The placenta was delivered spontaneously with umbilical cord traction and fundal massage. The uterus was cleared of all clots and debris. The bladder reflection was identified, and the bladder bluntly dissected from the underlying thinly uterine serosa to push it further away from the hysterotomy incision. The uterine incision was reapproximated in a running locking fashion with a 0 chromic suture. A 2nd layer of the same suture was used to imbricate in horizontal fashion. Eleuterio was placed over the hysterotomy closure and the bladder reflection. All instruments and retractors were removed. The subfascial tissues were carefully inspected and hemostasis assured. The fascia was reapproximated in a running fashion with a looped 0 Maxon suture. The subcutaneous tissues were copiously irrigated. Hemostasis was assured. The skin was closed in a subcuticular fashion with 4-0 Vicryl. Surgical glue and dressing were applied. The patient tolerated the procedure well. Sponge, lap, needle, and instrument counts were reported as correct x2. The patient was taken to the recovery room, awake, and in stable condition. She did receive 2 grams of IV Ancef preoperatively. Complications: None. Pathology: none sent Surgery Debrief Performed: Yes Condition: stable Disposition: floor
--- NOTE | 2025-01-01 08:50 | P.ANES_ITS ---
Anesthesia Charges Start Date/Time Anesthesia Start Date: 01/01/25 Anesthesia Start Time: 07:18 Stop Date/Time Anesthesia Stop Date: 01/01/25 Anesthesia Stop Time: 08:59 Coding CPT Codes CPT Codes: ANESTH CS DELIVERY - 22573 ([id number]) P2 - PATIENT W/MILD SYST DISEASE, QK - FORM SETTER METAL ROAD FORMS 2-4 CNCRNT ANES PROC, QX - METAL CONTROL WORKER SVC W/ MD MED DIRECTION
--- NOTE | 2025-01-01 08:50 | W.ANESCHARGE ---
Anesthesia Charges Start Date/Time Anesthesia Start Date: 01/01/25 Anesthesia Start Time: 07:18 Stop Date/Time Anesthesia Stop Date: 01/01/25 Anesthesia Stop Time: 08:59 Coding CPT Codes CPT Codes: ANESTH CS DELIVERY - 83423 ([id number]) P2 - PATIENT W/MILD SYST DISEASE, QK - SHIATSU THERAPIST 2-4 CNCRNT ANES PROC, QX - COIL SHAPER SVC W/ MD MED DIRECTION
--- NOTE | 2025-01-01 08:51 | P.NB_ITS ---
Nerve Block Nerve Block Time Seen by Provider: 08:45 Date Seen: 01/01/25 Type of block requested by surgeon for post-operative analgesia: TAP Side: bilateral Time out performed: Yes Verification of patient name: Yes Verification of date of : Yes Site marking: site marked Name of person performing procedure: Shamar Continuous monitoring Was continuous monitoring of O2 sat, B/P, monitoring manager, recorded every 15 minutes?: Yes Procedure Checklist: sterile prep, needles and gloves Ultrasound guided. Images saved: Yes Medications given in 5ml increments after negative aspiration: Marcaine %: 0.25 mL: 30 Needle gauge: 20 and Exparel mL: 10 Patient tolerated procedure well: Yes Additional comments: Needle noted between internal oblique and transversus abdominus. Local spread visualized Block Charges Block Charge (with Pro Fee): TAP Bilateral Use of Ultrasound Machine for Block: Yes- US Guidance/pain block
--- NOTE | 2025-01-01 09:02 | P.ANES_ITS ---
Anesthesia Charges Start Date/Time Anesthesia Start Date: 01/01/25 Anesthesia Start Time: 07:18 Stop Date/Time Anesthesia Stop Date: 01/01/25 Anesthesia Stop Time: 08:59 Coding CPT Codes CPT Codes: ANESTH CS DELIVERY - 25582 ([id number]) P2 - PATIENT W/MILD SYST DISEASE, QK - ASIAN ART CURATOR 2-4 CNCRNT ANES PROC, QX - PROJECT BUILDER SVC W/ MD MED DIRECTION
--- NOTE | 2025-01-01 09:02 | W.ANESCHARGE ---
Anesthesia Charges Start Date/Time Anesthesia Start Date: 01/01/25 Anesthesia Start Time: 07:18 Stop Date/Time Anesthesia Stop Date: 01/01/25 Anesthesia Stop Time: 08:59 Coding CPT Codes CPT Codes: ANESTH CS DELIVERY - 13045 ([id number]) P2 - PATIENT W/MILD SYST DISEASE, QK - MANAGER ACTION 2-4 CNCRNT ANES PROC, QX - SENIOR SHIPPING CLERK SVC W/ MD MED DIRECTION
[2025-01-01] MEDS: ONDANSETRON 2 MG/ML inj 4 MG IVP (12:47)
[2025-01-01] MEDS: ACETAMINOPHEN 500 MG TABLET 1000 MG PO (18:07)
[2025-01-01] MEDS: ENOXAPARIN 40 MG/0.4 ML INJ SUBCUT (20:54)
[2025-01-02] VITALS (14 sets, daily range): BP systolic 100–113; BP diastolic 54–81; PULSE 60–79; RESP 16; TEMP 36.5–36.8; O2SAT 94–99
[2025-01-02] MEDS: ACETAMINOPHEN 500 MG TABLET 1000 MG PO ×4 (00:23→23:38)
[2025-01-02 06:01] LABS: Hemoglobin* 10.3 gm/dL (12.0-16.0)
[2025-01-02] MEDS: ENOXAPARIN 40 MG/0.4 ML INJ SUBCUT ×2 (09:18→20:26)
[2025-01-02] MEDS: DOCUSATE SODIUM 100 MG CAPSULE PO (09:42)
--- NOTE | 2025-01-02 10:40 | PM.OBPNVD1 ---
OB - PN:Subj Subjective Time Seen by Provider: 10:40 Date Seen: 01/02/25 Narrative: Overnight patient had no complaints. Her pain is well controlled on oral medications. She is tolerating a regular diet. She is ambulating without difficulty. Lochia is scant. She is urinating without armstrong. Patient denies chest pain, SOB, n/v, or abdominal pain. Feeling sore as anticipate from her previous experience. OB - PN: Obj Exam Physical Exam: Vital signs: Temp Pulse Resp BP Pulse Ox O2 Del Method 98.2 F 61 16 104/62 97 Room Air 01/02/25 04:41 01/02/25 04:41 01/02/25 06:03 01/02/25 04:41 01/02/25 04:41 01/02/25 04:41 Narrative: Physical exam: General: No acute distress Psych: Alert and oriented x4, full affect HEENT: Normocephalic, atraumatic Heart: Regular rate and rhythm, no murmur rub or gallop Lungs: Clear to auscultation bilaterally Abdomen: Normoactive bowel sounds, soft, no tenderness, rebound, or guarding. Uterus 3 cm below umbilicus Incision(s): Dressing removed. Minimally, tender to palpation. Clean, dry, and intact. No erythema, induration, or abnormal discharge/breakdown Skin: No lesions or rashes Lower extremities: No edema or erythema. No cording or pain. Pelvic exam: Deferred. OB - PN: Obj Data Labs Labs: Laboratory Results - last 24 hr 01/02/25 05:47 Hgb 10.3 L OB - PN: A/P Delivery Assessment and Plan (1) Status post repeat low transverse section: Problem details: Scheduled repeat, boy 01/01/25 Status: Acute Plan Postoperative/post delivery Review: - Admitted for: Scheduled delivery - Surgical procedure: Repeat low transverse section - Skin incision: Pfannenstiel - Closure: Sutures - Estimated blood loss: 310 mL - Intraoperative Complications: none - Findings: Moderate scar tissue from prior deliveries involving fascia, rectus muscles, and peritoneum, as well as lower uterine segment and bladder. Very thin lower uterine segment with a 2 mm x 10 mm window. Meconium-stained amniotic fluid. Live-born male , cephalic presentation with loose nuchal cord x1, weight 7 lb 0 oz, Apgars 8 and 9 at 1 and 5 minutes, respectively. Normal appearing tubes and ovaries bilaterally. - Discussed family planning. Considering vasectomy. If she were to have a 4th child, recommend waiting at least 18-24 months. Likely delivery at 37 weeks due to uterine window. - Urine output: adequate - Preop/pre delivery Hgb: 12.0 - Postop/post delivery Hgb: 10.3 Postoperative care: - Diet: Advance as tolerated - Fluid: Encourage oral intake - Activity: Encourage ambulation and incentive spirometry - Pain: Acetaminophen, Ibuprofen, and oxycodone - DVT prophylaxis: SCDs and TEDs when not ambulating. Lovenox 40 mg Q12H ordered due to history of PE. Dispo: Patient is POD#1. Anticipate discharge POD#1.
[2025-01-02] MEDS: IBUPROFEN 600 MG TABLET PO (20:25)
[2025-01-03] MEDS: IBUPROFEN 600 MG TABLET PO ×2 (02:38→08:42)
[2025-01-03] MEDS: SIMETHICONE 80 MG TAB.CHEW PO ×2 (02:39→08:34)
[2025-01-03] MEDS: ACETAMINOPHEN 500 MG TABLET 1000 MG PO (05:38)
[2025-01-03 05:49] VITALS: BP 111/74; PULSE 83; RESP 16; TEMP 36.6; O2SAT 98
[2025-01-03] MEDS: DOCUSATE SODIUM 100 MG CAPSULE PO (08:35)
[2025-01-03] MEDS: ENOXAPARIN 40 MG/0.4 ML INJ SUBCUT (08:35)
[2025-01-03 10:30] VITALS: BP 112/68; PULSE 60; RESP 16; TEMP 36.4; O2SAT 98
--- NOTE | 2025-01-03 13:48 | PM.DS1 ---
DS: Providers Provider Time Seen by Provider: 09:00 Date Seen: 01/03/25 Date of admission: 01/01/25 05:59 Primary care physician: Claribel Alvarenga APRN, [employer]URE ARCHITECT Admitting Clinician: Guerita Vásquez MD Attending Physician on discharge: Guerita Vásquez MD Date of Discharge: 01/03/25 DS: Diagnosis Discharge Diagnosis (1) Status post repeat low transverse section: Status: Acute Problem details: Scheduled repeat, boy 01/01/25 (2) Factor V Leiden: Status: Chronic Problem details: Heterozygous (3) History of DVT (deep vein thrombosis): Status: Acute Problem details: L lower extremity 07/30/21 after on 06/17/21. (4) manager terminal (current) use of anticoagulants: Status: Chronic Problem details: Indication: DVT/PE. INR target range 2-3 for 6 months. (5) Pulmonary embolism: Status: Acute Problem details: Bilateral 07/30/21 after on 06/17/21. DS: Summary Hospital Course Hospital Course: Paulette is a 34 y/o G3, now P3003 here for scheduled repeat delivery on 01/01/2025. She had an uncomplicated repeat delivery. Surgical findings notable for: Very thin lower uterine segment with a 2 mm x 10 mm window. Medical history notable for hx of PE. Will continue lovenox 40 mg Q12H for at least 6 weeks postpartm. Patient gets lovenox at hospital pharmacy. she has done well without issues. Overnight patient had no complaints. Her pain is well controlled on oral pain medications. She is tolerating a regular diet. She has passed flatus. She is ambulating without difficulty. Lochia is scant. She is urinating without armstrong. Time Spent with Patient Time attestation: Total time spent providing and/or coordinating discharge services: Time spent: Less than 30 minutes Exam Narrative: Exam Narrative: General: No acute distress Psych: Alert and oriented x4, full affect HEENT: Normocephalic, atraumatic Heart: Regular rate and rhythm, no murmur rub or gallop Lungs: Clear to auscultation bilaterally Abdomen: Normoactive bowel sounds, soft, no tenderness, rebound, or guarding. Uterus 3 cm below umbilicus Incision(s): Nontender on palpation. Clean, dry, and intact. No erythema, induration, or abnormal discharge/breakdown Skin: No lesions or rashes Lower extremities: No edema or erythema. No cording or pain. Pelvic exam: Scant lochia pad Const: Vital Signs, click to edit/add: Vital Signs - 24 hr 01/02/25 15:45 01/02/25 20:28 01/03/25 05:49 Temperature 97.7 F 97.7 F 97.9 F Pulse Rate [Pulse Oximeter] 68 79 83 Respiratory Rate 16 16 16 Blood Pressure [Le ft Arm] 100/66 112/73 111/74 Pulse Oximetry 94 98 98 Oxygen Delivery Me thod Room Air Room Air Room Air 01/03/25 10:30 Temperature 97.5 F L Pulse Rate [Pulse Oximeter] 60 Respiratory Rate 16 Blood Pressure [Le ft Arm] 112/68 Pulse Oximetry 98 Oxygen Delivery Me thod Room Air DS: Data Data Completed and Pending Completed studies during hospitalization: Procedures Extraction of Products of Conception, Low, Open Approach (05/10/23) Discharge Plan Discharge Disposition: Home, Self-Care Date of Admission: 01/01/25 05:59 Attending Provider on Discharge: Maylin Farias Primary Care Provider: Claribel Alvarenga Condition: Stable Anticipated Discharge Date/Time: 01/03/25 09:38 Discharge Medications: New acetaminophen 500 mg Tablet 1,000 mg PO Q6H PRN (Reason: Pain) 30 Days Qty: 60 0RF docusate sodium 100 mg Capsule 100 mg PO DAILY 30 Days Qty: 30 0RF ibuprofen 600 mg Tablet 600 mg PO Q6H PRN (Reason: Pain) 30 Days Qty: 60 0RF Lanolin (HPA) 100 % Cream 1 applic topical Q1H PRN30 Days Qty: 21 0RF polyethylene glycol 3350 17 gram Powder In Packet 17 g PO DAILY PRN30 Days Qty: 30 0RF oxycodone 5 mg Tablet 5 mg PO Q6H PRN (Reason: Pain) 14 Days Qty: 15 0RF simethicone 80 mg Tablet,Chewable 80 - 160 mg PO Q4H PRN (Reason: Gas) 30 Days Qty: 30 0RF Continued magnesium oxide 400 mg (241.3 mg magnesium) tablet 400 mg PO QDAY Zyrtec 10 mg capsule 10 mg PO QDAY PRN prenat.vits,keli,tru-htql-[id number] Tablet 1 tab PO QDAY docusate sodium [Colace] 100 mg capsule 100 mg PO QDAY enoxaparin 40 mg/0.4 mL syringe 40 mg subcut Q12H Qty: 19.2 3RF Discharge Orders: Discharge Order (Routine); Ordered 01/03/25 Ordered By: Maylin Farias Patient Education: OB /Breast Feeding Activity Level: Activity as Tolerated and No strenuous activity Discharge Diet: Regular Follow Up Appointments: Claribel Avlarenga, BULLET SL[employer] CASTING MACHINE OPERATOR, [employer] ARCHITECT [Primary Care Provider, Family Practice] Forms: [facility] Instructions Discharge Comments: POSTOPERATIVE INSTRUCTIONS ACTIVITY No heavy lifting/pushing/pulling for 4-6 weeks. Do not lift anything more than about 10-15 lbs (such as laundry, groceries, children, pets), vacuum, push heavy doors or grocery carts, etc. You may climb stairs as tolerated. Do not put anything in the vagina for 6 weeks after surgery unless otherwise instructed by your doctor (including tampons, douching, sexual intercourse, etc). No driving for about 2 weeks after surgery, while you are taking narcotic pain medication, or until you feel that you are ready. Practice checking your blind spot and stepping hard on the brake. Avoid sitting or lying in bed for more than 2 hours at a time while you are awake to reduce your risk of blood clots. You may return to work when directed by your physician. Please contact your doctor if you need any return to work letters or medical leave paperwork to be completed. WOUND CARE You will have one large incision on your abdomen. There will be dissolvable stitches under your skin that do not need to be removed. You will also have surgical glue on the incision, and these may be removed like a Band-Aid when they curl up at the edges. Shower daily after surgery. Clean your incision with mild antibacterial soap and water. Pat your incision dry with a clean towel. No tub baths until wound is completely healed. Wash your hands frequently, especially before touching your incision, changing any dressings, after using the restroom, and before eating. PAIN MANAGEMENT Take your oral pain medication as needed. You should be taking Ibuprofen 600mg every 6 hours with 1 gram of Tylenol every 6 hours. You can take these together every six hours or alternate them every 3 hours. You should then take the oxycodone as needed if you have breakthrough pain on top of the Tylenol and Ibuprofen. Some pain medications can cause constipation so you should take a stool softener (i.e. colace) while you are on these medications. You may also take milk of magnesia or Miralax for constipation. WHAT TO EXPECT AT HOME Recovery from surgery is generally 4-6 weeks, but sometimes longer for more strenuous activity. It is normal to be very tired during this time. It is normal to have some drainage or a small amount of vaginal bleeding after surgery which may last up to 6 weeks. You will most likely experience gas pain, abdominal swelling, or shoulder pain for 24-72 hours after surgery. A warm shower, heating pad, and/or walking may help. WHEN TO CALL YOUR DOCTOR : Fever (>100.4?F or 38.0?C) or chills. Incision problems such as redness, warmth, swelling, or foul smelling drainage. Severe nausea or persistent vomiting. Bright red vaginal bleeding (soaking >2 pad/hour) or foul smelling vaginal drainage. Severe pain not relieved with pain medication. Pain and swelling in your legs, especially if it is only on one side and not the other. Pain with urination, cloudy urine, or foul smelling urine. Thoughts of hurting yourself and/or Painful, reddened area in your breast Any drainage, redness or tenderness in your IV/epidural site Severe headache that doesn't improve after taking medications Changes in vision, including temporary loss of vision, blurred vision, and/or light sensitivity Or if you have any other problems or questions. CALL 911 OR GO TO THE EMERGENCY ROOM IF YOU HAVE: Any shortness of breath, difficulty breathing, or chest pain.
--- NOTE | 2025-01-08 11:58 | W.PM.H&PU ---
History & Physical Update History & Physical Update H&P Reviewed and patient assessed: No changes noted H&P Updates: Patient presents for scheduled repeat delivery.
== END 2025-01-03 11:00 | disposition home or self-care (01) | DRG 787 ==
PROVIDERS: Admitting Provider Obstetrics & Gynecology; PCP Nurse Practitioner Family; Visit Provider Obstetrics & Gynecology
PROC: 10D00Z1 Extraction of Products of Conception, Low, Open Approach (ICD-10-PCS; CPT 59514; principal; 2025-01-01 07:15)
DX: O34.211 Maternal care for low transverse scar from previous cesarean delivery (principal); D68.51 Activated protein C resistance; O99.12 Other diseases of the blood and blood-forming organs and certain disorders involving the immune mechanism complicating childbirth; Z86.711 Personal history of pulmonary embolism; Z79.01 Long term (current) use of anticoagulants; G89.18 Other acute postprocedural pain; Z3A.38 38 weeks gestation of pregnancy; Z37.0 Single live birth
CPT/HCPCS: 01961; 36415; 64488; 76942; 85018; 85025; 86592; 86850; 86900; 86901; A4314; A9270; J0665; J0666; J0690; J1100; J1650; J1885; J2274; J2371; J2405; J2590; J7120

== ENCOUNTER 2025-04-06 13:17 | Outpatient (CLI) | payer OTHER, SELFPAY | END 2025-04-06 13:18 | disposition home or self-care (01) | PROVIDERS: PCP Nurse Practitioner Family; Visit Provider Nurse Practitioner Family | DX: M25.50 Pain in unspecified joint (principal) | CPT/HCPCS: 80053; 84550; 85025; 85651; 86038; 86140; 86200; 86431; 86618 ==